=== PATIENT | male | born 1940 | race Caucasian/White ===

== ENCOUNTER 2018-08-15 10:44 | Emergency (ER) | payer MEDICARE, OTHER ==
[~2018-08-15] VITALS: Ht 177.8 cm; Wt 81.8 kg
[~2018-08-15 10:44] MED LIST: ONDA8TAB9 PO
[2018-08-15] MEDS ORDERED: dexamethasone sod phosphate 10mg/ml inj IV STA (12:18)
[2018-08-15] MEDS ORDERED: normal saline 1000ML IV soln IVB ONE (12:20)
[2018-08-15] MEDS ORDERED: ketorolac trometh. 30mg/ml inj. IV ONE (12:20)
[2018-08-15] MEDS ORDERED: LORazepam 2 mg/ml vial IV ONE (12:20)
[2018-08-15] MEDS ORDERED: metoclopramide 5 mg/ml inj IV ONE (12:20)
[2018-08-15] MEDS ORDERED: HYDROcodone/acetaminophen 5mg/325mg tablet PO ONE (12:20)
[2018-08-15 13:37] VITALS: BP 140/78
== END 2018-08-15 13:39 | disposition home or self-care (01) ==
LOC: ER 10:45
DX: G89.29 Other chronic pain (principal); M54.42 Lumbago with sciatica, left side; G43.909 Migraine, unspecified, not intractable, without status migrainosus; I10 Essential (primary) hypertension; J44.9 Chronic obstructive pulmonary disease, unspecified
CPT/HCPCS: 96374; 96375; 99284; J1100; J1885; J2060; J2765